=== PATIENT | male | born 1955 | race Caucasian/White ===

== ENCOUNTER 2017-03-01 09:56 | Emergency (ER) | payer BC ==
[2017-03-01] MEDS ORDERED: NORMAL SALINE 1,000 ML IV ONE (10:13)
--- NOTE | 2017-03-01 10:27 | ERNOTE ---
Neuro HPI ER Record Presenting Symptoms: other Time Seen by Provider: 03/01/17 10:03 Source: patient, family Exam Limitations: clinical condition Immunizations: IMMUNIZATION HX Immunizations Up to Date No History of Influenza Vaccine No Hx Pneumococcal Vaccination Yes Allergies/Adverse Reactions: Allergies Allergy/AdvReac Type Severity Reaction Status Date / Time No Known Allergies Allergy Unverified 03/09/16 10:36 Home Medications: HOME MEDICATIONS Cyclobenzaprine HCl [Flexeril] 10 mg PO TID PRN #30 tab 03/09/16 [Last Taken Unknown] Escitalopram Oxalate [Lexapro] 10 mg PO DAILY 03/09/16 [Last Taken Unknown] Ibuprofen [Motrin] 600 mg PO Q6H PRN #40 tab 03/09/16 [Last Taken Unknown] Pantoprazole Sodium 20 mg PO DAILY 03/09/16 [Last Taken Unknown] levETIRAcetam [Keppra] 250 mg PO DAILY 03/09/16 [Last Taken Unknown] - History of Present Illness Narrative: History obtained from patients spouse. Patient has a history of seizures, is currently on no medications for that, has about 2-3 seizures per year. His noticed that he was acting different expected the seizure and made him lay down on the couch. He had a one minutes generalized seizure that lasted one minutes, then 'went to sleep', no history of recent illness or injury. He drinks ETOH heavily (per spouse one fifth plus multiple beer) on a regular basis ,drinking last night. Review of Systems - Review of Systems Constitutional: Absent: recent illness, fever EYE: Absent: vision changes Respiratory: Absent: shortness of breath Cardiology: Absent: chest pain Gastrointestinal/Abdominal: Present: nausea. Absent: vomiting, diarrhea Musculoskeletal: Absent: back pain, neck pain Neurological: Absent: headache, weakness, numbness - Patient's Past Medical History Patient History - Medical: Alcohol Abuse, Anxiety, GERD, Seizures Patient History - Cancer: No Hx of Cancer Patient History - Surgical Procedures: Appendectomy, Other - Family History Mother Family History - Medical: History Unknown - Social History Living Situations: spouse Abuse History: No History of abuse Psych History: Hx of Depression Smoking Status: Current every day smoker Have you smoked in the past 12 months: Yes Do you dip or chew tobacco: - 20 Alcohol Use: heavy Drug Use: none - Immunizations Immunizations Up to Date: No Hx Pneumococcal Vaccination: Yes History of Influenza Vaccine: No Physical Exam - Physical Exam General Appearance: Present: wd/wn, no apparent distress, other - slow, but responds appropiately Eye Exam: Normal inspection: bilateral, PERRL: bilateral Ears, Nose, Throat: Present: normal ENT inspection, normal pharynx, other - no signs of injury Neck: Present: normal inspection, nontender, supple Respiratory: Present: no respiratory distress, normal breath sounds, lungs clear Cardiovascular/Chest: Present: regular rate, rhythm, no murmur, normal peripheral pulses Gastrointestinal/Abdominal: Present: normal bowel sounds, nontender, nondistended, soft Extremity Exam: Present: no edema Neurological Exam: Present: normal mood/affect, no motor/sensory deficits, audio/video engineer II-XII nml as tested, disoriented to time, disoriented to situation, other - slight resting tremor. Absent: disoriented to person, disoriented to place Skin Exam: Present: normal color, warm/dry Gabriela Coma Scale - Assess Eye Opening: Spontaneous Motor: Obeys Commands Verbal: Confused - Total Coma Scale Total: 14 ED Progress - Results and Orders Patient's Lab Results:: I have reviewed the patient's lab results. - Vital Signs Patient's Vital Signs:: I have reviewed the patient's vital signs. Vital Signs: Vital Signs 03/01/17 10:05 Temperature 36.4 C L Pulse Rate 120 H Respiratory 12 Rate Blood Pressure 146/89 O2 Sat by Pulse 90 Oximetry - EKG EKG: NSR - sinustachy EKG read: Interp. by me - Progress/Reassessment Chief Complaint: Seizure Activity Progress Note-Subjective: 03/01/17 11:53 patient alert, denies any concerns, able to ambulate and tolerate fluids discussed ETOH abuse discussed results with patient and spouse, seems to be back to baseline Departure Clinical Impression: Seizure EtOH dependence Qualifiers: Substance use status: unspecified alcohol-induced disorder Qualified Code(s): F10.29 - Alcohol dependence with unspecified alcohol-induced disorder - Departure Disposition: Home self-care Condition: Fair Instructions: Alcohol Intoxication, [id number], Seizure, Adult, [id number] Additional Instructions: if you want to see a neurologist while you in [place] call Dr Ernandez's office it would be good if you could reduce the amount of alcohol you are drinking or stop completely consider taking a daily vitamin and thiamine Referrals: Rashid Ernandez MD [Consulting Physician] -
[2017-03-01 10:29] LABS: Hematocrit 39.6 % (42.0-52.0); Mean Cell Volume 98.3 fl (78-100); Mean Corpuscular Hemoglobin 34.7 pg (27-31); Mean Corpuscular Hgb Conc 35.4 g/dl (32-36); Mean Platelet Volume 9.5 fl (6.0-9.5); Neutrophil # 3.7 K/mm3 (1.3-6.0); Neutrophil % 64.7 % (42-75.0); Platelet Count 149 K/mm3 (150-450); Red Blood Count 4.03 M/mm3 (4.7-6.0); Red Cell Distribution Width 13.6 % (11.5-14.0); White Blood Count 5.7 K/mm3 (4.0-10.5)
[2017-03-01 10:42] LABS: ALT 84 U/L (19-67); AST 192 U/L (0-48); Albumin * 4.4 gm/dl (3.4-5.0); Alkaline Phosphatase * 94 U/L (50-170); Anion Gap 21.6 mmol/L (6.8-13.8); BUN/Creatinine Ratio 6.3 (9.0-21.6); Blood Urea Nitrogen 5 mg/dL (6-23); Calcium * 9.6 mg/dL (7.9-10.9); Carbon Dioxide 22.2 mmol/L (24-32.6); Chloride 98 mmol/L (97-106); Glucose * 166 mg/dL (70-110); Potassium 3.8 mmol/L (3.4-4.6); Sodium 138 mmol/L (132-142); Total Protein 7.7 gm/dL (6.2-8.2)
[2017-03-01] MEDS ORDERED: ONDANSETRON HCL/PF 2 MG/ML VIAL ONE (11:09)
[2017-03-01] MEDS ORDERED: ONDANSETRON HCL/PF 2 MG/ML VIAL IV ONE (11:11)
[2017-03-01 11:39] VITALS: BP 135/88
== END 2017-03-01 11:55 | disposition home or self-care (01) ==
LOC: ER 09:56
DX: R56.9 Unspecified convulsions (principal); F10.29 Alcohol dependence with unspecified alcohol-induced disorder
CPT/HCPCS: 36415; 80053; 85025; 93005; 96374; 99284; G0481; J2405

== ENCOUNTER 2017-03-03 06:52 | Emergency (ER) | payer BC ==
--- NOTE | 2017-03-03 07:12 | ERNOTE ---
Trauma/Assault HPI - General Stated Complaint: falls Time Seen by Provider: 03/03/17 07:02 Source: patient Exam Limitations: clinical condition - Immun/Allergies/Home Medications Immunizations: IMMUNIZATION HX Immunizations Up to Date Yes History of Influenza Vaccine No Hx Pneumococcal Vaccination Yes Allergies/Adverse Reactions: Allergies No Known Allergies Allergy (Verified 03/03/17 07:01) Home Medications: HOME MEDICATIONS Escitalopram Oxalate [Lexapro] 10 mg PO DAILY 03/09/16 [Last Taken Unknown] - History of Present Illness Narrative: Pt states that last night he fell and injured his right arm/ shoulder, but decided to wait to have it evaluated until morning. later he got up to use the bathroom again and fell and injured his left shoulder. Brought in by EMS who gave him 150 mcg fentanyl and 2 mg versed. Location Occurred: Reports: home Pain Location: Reports: upper extremity - bilateral Method of Injury: Reports: fall Severity: moderate, severe Modifying Factors - (Improves): Reports: immobilization Modifying Factors - (Worsens): Reports: movement Loss of Consciousness: Reports: no loss of consciousness Review of Systems - Review of Systems Constitutional: Absent: recent illness EYE: Present: no symptoms reported ENT: Present: no symptoms reported Respiratory: Absent: shortness of breath, cough Cardiology: Absent: chest pain Gastrointestinal/Abdominal: Absent: nausea, vomiting, abdominal pain Genitourinary: Present: no symptoms reported Musculoskeletal: Present: See HPI Skin: Present: See HPI Neurological: Absent: headache Endocrine: Present: no symptoms reported Hematologic/Lymphatic: Present: no symptoms reported Psych: Present: no symptoms reported - Patient's Past Medical History Patient History - Medical: Alcohol Abuse, Anxiety, GERD, Seizures Patient History - Cardiac/Respiratory: No pertinent hx Patient History - Cancer: No Hx of Cancer Patient History - Surgical Procedures: Appendectomy, Colon Resection Patient History - Other: None - Family History Mother Family History - Medical: History Unknown - Social History Living Situations: spouse Abuse History: No History of abuse Psych History: Hx of Depression Smoking Status: Current every day smoker Have you smoked in the past 12 months: Yes Alcohol Use: heavy Drug Use: none - Immunizations Immunizations Up to Date: Yes Hx Pneumococcal Vaccination: Yes History of Influenza Vaccine: No Physical Exam - Physical Exam General Appearance: Present: wd/wn, alert, mild distress Ears, Nose, Throat: Present: normal ENT inspection Neck: Present: normal inspection, nontender Respiratory: Present: no respiratory distress, normal breath sounds, lungs clear Cardiovascular/Chest: Present: regular rate, rhythm, no murmur Peripheral Pulses: N=norm/S=strong/W=weak/B=bound/A=absent: Radial (R): Normal, Radial (L): Normal Gastrointestinal/Abdominal: Present: normal bowel sounds, nontender, soft Extremity Exam: Present: joint swelling - right shoulder with ecchymoses. left shoulder has mild anterior fullness and pain on any motion Neurological Exam: Present: alert, other - Pt somewhat confused and has difficulty concentrating. He was given 150mcg fentanyl and 2 mg midazolam IV in the ambulance Skin Exam: Present: other - ecchymoses over the entire right shoulder ED Progress - Results and Orders Patient's Lab Results:: I have reviewed the patient's lab results. Results and Orders: Laboratory Tests 03/03/17 03/03/17 07:13 07:13 WBC 9.5 D Hgb 9.8 L Hct 27.4 L Plt Count 125 L Neutrophils % 76.5 H Sodium 128 L Potassium 3.4 Chloride 92 L Carbon Dioxide 25.1 Anion Gap 14.3 H BUN 9 D Creatinine 0.86 Est GFR (Non-Af Amer) 96 BUN/Creatinine Ratio 10.5 Random Glucose 121 H Calcium 8.6 Ethyl Alcohol 31.0 H - Vital Signs Patient's Vital Signs:: I have reviewed the patient's vital signs. Vital Signs: Vital Signs 03/03/17 03/03/17 06:54 07:02 Temperature 35.5 C L Pulse Rate 105 H 105 H Respiratory 10 L Rate Blood Pressure 101/59 O2 Sat by Pulse 94 Oximetry - X-Ray X-Ray #1 X-Ray: shoulder Interpretation: Interp. by me X-ray Comments: bilateral proximal humerus fractures. Left humeral head fracture also. - Progress/Reassessment Chief Complaint: Fall Progress Note-Subjective: 03/03/17 07:54 Spoke with Cain Arzate PAC, director of retail operations for orthopedics. He was in transit and will look at the films as soon as he gets here and call me back with plan of action. 03/03/17 08:07 Received a call back from Cain Arzate PAC, he had Dr. Garduno look at the films and he states that the patient needed to be sent to the [facility]. I inquired about [facility] and he stated that [facility] would not be able to handle this either and he should go to [facility]. [facility] contacted and will call me back as they are busy with another case 03/03/17 08:35 Received call back from [facility] Transfer center. Spoke with Dr. Handley and she agreed to accept the patient. Pt will be transferred by [facility] service 03/03/17 08:43 Departure Clinical Impression: Fracture, humerus, anatomical neck Qualifiers: Encounter type: initial encounter Fracture type: closed Laterality: right Qualified Code(s): S42.291A - Other displaced fracture of upper end of right humerus, initial encounter for closed fracture Fracture, humerus, head Qualifiers: Encounter type: initial encounter Fracture type: closed Laterality: left Qualified Code(s): S42.292A - Other displaced fracture of upper end of left humerus, initial encounter for closed fracture - Departure Disposition: [facility] Condition: Fair
[2017-03-03 07:22] LABS: Hematocrit 27.4 % (42.0-52.0); Hemoglobin 9.8 gm/dL (13.5-18.0); Mean Cell Volume 97.2 fl (78-100); Mean Corpuscular Hemoglobin 34.8 pg (27-31); Mean Corpuscular Hgb Conc 35.8 g/dl (32-36); Mean Platelet Volume 9.3 fl (6.0-9.5); Neutrophil # 7.3 K/mm3 (1.3-6.0); Neutrophil % 76.5 % (42-75.0); Platelet Count 125 K/mm3 (150-450); Red Blood Count 2.82 M/mm3 (4.7-6.0); Red Cell Distribution Width 13.1 % (11.5-14.0); White Blood Count 9.5 K/mm3 (4.0-10.5)
[2017-03-03 07:30] LABS: Anion Gap 14.3 mmol/L (6.8-13.8); BUN/Creatinine Ratio 10.5 (9.0-21.6); Calcium * 8.6 mg/dL (7.9-10.9); Carbon Dioxide 25.1 mmol/L (24-32.6); Estimated Creat Clear 97.3; Potassium 3.4 mmol/L (3.4-4.6)
[2017-03-03] MEDS ORDERED: MORPHINE SULFATE 2 MG/ML DISP.SYRIN IV ONE (08:47)
[2017-03-03] MEDS ORDERED: MORPHINE SULFATE 2 MG/ML DISP.SYRIN ONE (09:16)
[2017-03-03 09:21] VITALS: BP 130/79
== END 2017-03-03 09:21 | disposition short-term general hospital (02) ==
LOC: ER 06:52
DX: S42.291A Other displaced fracture of upper end of right humerus, initial encounter for closed fracture (principal); S42.292A Other displaced fracture of upper end of left humerus, initial encounter for closed fracture; W18.30XA Fall on same level, unspecified, initial encounter; Y93.9 Activity, unspecified; Y92.009 Unspecified place in unspecified non-institutional (private) residence as the place of occurrence of the external cause; R29.6 Repeated falls; Z72.0 Tobacco use
CPT/HCPCS: 36415; 70450; 73030; 80048; 85025; 96374; 99285; G0481

== ENCOUNTER 2017-03-25 17:48 | Emergency (ER) | payer BC ==
[2017-03-25] MEDS ORDERED: HYDROmorphone HCL 1 MG/ML DISP.SYRIN IV ONE ×2 (18:05→19:22)
[2017-03-25] MEDS ORDERED: HYDROmorphone HCL 1 MG/ML DISP.SYRIN ONE (18:07)
[2017-03-25 18:30] LABS: Hematocrit 28.7 % (42.0-52.0); Hemoglobin 9.1 gm/dL (13.5-18.0); Mean Corpuscular Hemoglobin 31.7 pg (27-31); Mean Corpuscular Hgb Conc 31.7 g/dl (32-36); Mean Platelet Volume 8.9 fl (6.0-9.5); Neutrophil # 8.5 K/mm3 (1.3-6.0); Neutrophil % 72.2 % (42-75.0); Platelet Count 406 K/mm3 (150-450); Red Blood Count 2.87 M/mm3 (4.7-6.0); Red Cell Distribution Width 15.6 % (11.5-14.0); White Blood Count 11.8 K/mm3 (4.0-10.5)
[2017-03-25 18:39] LABS: Albumin * 3.1 gm/dl (3.4-5.0); Anion Gap 10.6 mmol/L (6.8-13.8); BUN/Creatinine Ratio 20.3 (9.0-21.6); Bilirubin, Total 0.6 mg/dL (0.0-1.1); CRP 12.5 mg/dL (0.0-0.9); Ca. Corrected For Albumin 9.2 mg/dL (8.4-10.2); Calcium * 8.8 mg/dL (7.9-10.9); Carbon Dioxide 30.8 mmol/L (24-32.6); Potassium 4.4 mmol/L (3.4-4.6); Total Protein 7.1 gm/dL (6.2-8.2)
--- NOTE | 2017-03-25 20:05 | ERNOTE ---
Upper Extremity HPI - Narrative Date of Service: 03/25/17 - General Extremities Pain Location: shoulder: right Time Seen by Provider: 03/25/17 17:58 Source: patient Exam Limitations: no limitations - Immun/Allergies/Home Medications Immunizations: IMMUNIZATION HX Immunizations Up to Date Yes History of Influenza Vaccine No Hx Pneumococcal Vaccination Yes Allergies/Adverse Reactions: Allergies Allergy/AdvReac Type Severity Reaction Status Date / Time No Known Allergies Allergy Verified 03/25/17 17:56 Home Medications: HOME MEDICATIONS Escitalopram Oxalate [Lexapro] 10 mg PO DAILY 03/09/16 [Last Taken Unknown] Folic Acid 1 mg PO DAILY 03/25/17 [Last Taken Unknown] traMADol HCL [Ultram] 50 mg PO QID PRN 03/25/17 [Last Taken Unknown] - History of Present Illness Narrative: Patient presents to the ED for increased right shoulder pain. He relates that he has been having increased right shoulder pain for the last 2-3 days. He has also been noting increased right shoulder swelling with the increased pain. On questioning he also thought it was more warm. No recurrent injuries or falls. His left shoulder is doing well. No fever. No CP or SOB> ROM right arm limited but he thinks this is worse over the last 3 days. Has not been re- evaluated for this. Seen by Ortho at [facility] for this. Occurred: other - last 3 days Severity: severe Method of Injury: Reports: other - no recurrent injuries Modifying Factors - (Improves): Reports: rest Modifying Factors - (Worsens): Reports: movement Prior Treament: Reports: other - seen 1 week ago [facility] orthopedics Review of Systems - Review of Systems Constitutional: Absent: fever Respiratory: Absent: shortness of breath Cardiology: Absent: chest pain Gastrointestinal/Abdominal: Absent: abdominal pain All Other Systems: All systems neg except as marked - Patient's Past Medical History Patient History - Medical: Alcohol Abuse, Anxiety, GERD, Seizures Patient History - Cardiac/Respiratory: No pertinent hx Patient History - Cancer: No Hx of Cancer Patient History - Surgical Procedures: Appendectomy, Colon Resection Patient History - Other: None - Family History Mother Family History - Medical: History Unknown - Social History Living Situations: home Abuse History: No History of abuse Psych History: Hx of Depression Alcohol Use: heavy Drug Use: none - Immunizations Immunizations Up to Date: Yes Hx Pneumococcal Vaccination: Yes History of Influenza Vaccine: No Physical Exam - Physical Exam General Appearance: Present: alert, other - uncomfortable secondary to pain Head Exam: Present: normal inspection, no evidence of injury Eye Exam: Normal inspection: bilateral, PERRL: bilateral Ears, Nose, Throat: Present: normal ENT inspection Neck: Present: normal inspection Respiratory: Present: no respiratory distress, normal breath sounds, lungs clear Cardiovascular/Chest: Present: regular rate, rhythm, normal peripheral pulses, other - radial pulse strong Gastrointestinal/Abdominal: Present: normal bowel sounds, nontender, nondistended, soft. Absent: tenderness Extremity Exam: Present: other - massive swelling about the right shoulder. This is warm compared with the left shoulder and the rest of his skin. Severe pain with any ROm right shoulder and he cannot seem to actually move the right shoulder at all. Neurological Exam: Present: alert, normal mood/affect, no motor/sensory deficits , other - Limited by pain, no significant ROM right shoulder. Severe pain with any movement. Skin Exam: Present: normal color, warm/dry, other - reddened area right anterior shoulder but no blistering ED Progress - Results and Orders Patient's Lab Results:: I have reviewed the patient's lab results. - Vital Signs Patient's Vital Signs:: I have reviewed the patient's vital signs. Vital Signs: Vital Signs 03/25/17 03/25/17 03/25/17 17:52 19:05 19:22 Temperature 36.3 C L Pulse Rate 117 H 105 H 98 Respiratory 12 17 17 Rate Blood Pressure 166/95 168/93 177/98 O2 Sat by Pulse 100 96 95 Oximetry 03/25/17 19:42 Temperature Pulse Rate 104 H Respiratory 16 Rate Blood Pressure 177/84 O2 Sat by Pulse 94 Oximetry - X-Ray X-Ray #1 X-Ray: shoulder Interpretation: Interp. by me X-ray Comments: I reviewed images and also reviewed official x-ray report. - Progress/Reassessment Chief Complaint: Shoulder Injury/Pain Progress Note-Subjective: 03/25/17 20:03 Patient's ortho is at [facility]. I spoke with Dr Terry Machado at [facility], she reviewed labs, images and I sent her photos of the shoulder (pt agreed to this) . She felt the patient should be sent to [facility] for ortho eval in the ED and possible aspiration. Pt agreeable to this. Departure Clinical Impression: Shoulder pain, right - Departure Disposition: [facility] Condition: Stable Referrals: Pham Roa MD [Primary Care Provider] -
[2017-03-25 21:20] VITALS: BP 169/89
== END 2017-03-25 21:21 | disposition short-term general hospital (02) ==
LOC: ER 17:48
DX: M25.511 Pain in right shoulder (principal); F32.9 Major depressive disorder, single episode, unspecified; F41.9 Anxiety disorder, unspecified